=== PATIENT | male | born 1965 | race Caucasian/White ===

== ENCOUNTER 2017-04-16 19:24 | Emergency (ER) | payer OTHER ==
[2017-04-16 19:37] VITALS: BP 130/88
--- NOTE | 2017-04-16 20:11 | UC ---
Respiratory Complaint HPI - HPI Summary HPI Summary: Cough and congestion for about 2-3 days. No fever. Cough non productive. Cough is worse with deep breaths. - History of Current Complaint Chief Complaint: UCRespiratory Stated Complaint: COUGH Time Seen by Provider: 04/16/17 20:00 Hx Obtained From: Patient Onset/Duration: Gradual Onset, Lasting Days Timing: Constant Severity Initially: Moderate Severity Currently: Moderate Character: Cough: Nonproductive Aggravating Factors: Deep Breaths, Recumbent Position Alleviating Factors: Upright Position, Spontaneous Resolution Associated Signs And Symptoms: Positive: URI, Nasal Congestion. Negative: Dyspnea, Fever - Allergies/Home Medications Allergies/Adverse Reactions: Allergies Allergy/AdvReac Type Severity Reaction Status Date / Time CI Pigment Blue 63 Allergy Severe cause Verified 04/16/17 19:37 [From Cymbalta] liver problems Duloxetine [From Cymbalta] Allergy Severe cause Verified 04/16/17 19:37 liver problems Moxifloxacin [From Avelox] Allergy Intermediate severe Verified 04/16/17 19:37 muscle cramping and spasms Trazodone Allergy Unknown severe Verified 04/16/17 19:37 insomnia Celecoxib [From Celebrex] Allergy dizziness,muscle Verified 04/16/17 19:37 pain & spasms Gabapentin [From Neurontin] Allergy kidney Verified 04/16/17 19:37 failure Pregabalin [From Lyrica] Allergy dizziness, Verified 04/16/17 19:37 insomnia, increased pain PMH/Surg Hx/FS Hx/Imm Hx Previously Healthy: No - HIV, asthma. - Surgical History Surgical History: Yes Surgery Procedure, Year, and Place: [facility] 2012 [place], [place] - Family History Known Family History: Negative: Cardiac Disease, Hypertension, Diabetes - Social History Alcohol Use: None Substance Use Type: None Smoking Status (MU): Current Every Day Smoker Type: Cigarettes Amount Used/How Often: 10 cigarettes/day Have You Smoked in the Last Year: Yes Household Exposure Type: Cigarettes Review of Systems ENT: Sinus Congestion Respiratory: Cough All Other Systems Reviewed And Are Negative: Yes Physical Exam Triage Information Reviewed: Yes Appearance: Well-Appearing, No Pain Distress, Well-Nourished Vital Signs: Initial Vital Signs Temp 98 F 04/16/17 19:33 Pulse 97 04/16/17 19:33 Resp 18 04/16/17 19:33 BP 130/88 04/16/17 19:33 Pulse Ox 99 04/16/17 19:33 Vital Signs Reviewed: Yes Eyes: Positive: Conjunctiva Clear ENT: Positive: Pharynx normal, Nasal congestion, Nasal drainage, TMs normal. Negative: TM bulging, TM dull, TM red Neck: Positive: Supple, Nontender, No Lymphadenopathy Respiratory: Positive: Lungs clear, Normal breath sounds, No respiratory distress, No accessory muscle use, Rhonchi. Negative: Respiratory distress, Decreased breath sounds, Accessory muscle use, Crackles, Stridor, Wheezing Cardiovascular: Positive: RRR, No Murmur, Pulses Normal Abdomen Description: Negative: Distended, Guarding Musculoskeletal: Positive: Strength Intact, ROM Intact, No Edema Neurological: Positive: Alert, Muscle Tone Normal. Negative: Fatigued Psychological: Positive: Age Appropriate Behavior Skin: Negative: rashes UC Diagnostic Evaluation - Laboratory O2 Sat by Pulse Oximetry: 99 Respiratory Course/Dx - Course Course Of Treatment: cough and uri. HIV positive and he has asthma. He will return for any worsening. - Differential Dx/Diagnosis Provider Diagnoses: URI. acute bronchitis. Discharge - Discharge Plan Condition: Good Disposition: HOME Prescriptions: Azithromyxin DANICA (NF) [Z-Danica (Zithromax) 250 mg tabs #6] 2 tab PO .TODAY, THEN 1 DAILY #6 tab Benzonatate [TESSALON 200 MG CAP] 200 mg PO TID PRN #20 cap PRN Reason: Cough predniSONE TAB* [Deltasone TAB*] 20 mg PO DAILY #15 tab Patient Education Materials: Acute Bronchitis (ED) Referrals: Justin Bolton MD [Primary Care Provider] -
== END 2017-04-16 20:16 | disposition home or self-care (01) ==
LOC: UCCORT 19:24
DX: J20.9 Acute bronchitis, unspecified (principal); B20 Human immunodeficiency virus [HIV] disease; J45.909 Unspecified asthma, uncomplicated
CPT/HCPCS: 99212; G0463

== ENCOUNTER 2017-06-13 13:04 | Emergency (ER) | payer OTHER ==
[2017-06-13] MEDS ORDERED: Albuterol 2.5 MG/3 ML NEB.SOL* (0.083%) INH ONE (15:06)
--- NOTE | 2017-06-13 15:39 | RAD ---
HISTORY: Cough, positive HIV COMPARISONS: None VIEWS: 4: Frontal dual-energy and lateral views of the chest. FINDINGS: CARDIOMEDIASTINAL SILHOUETTE: The cardiomediastinal silhouette is normal. ROMARIO: The romario are normal. PLEURA: The costophrenic angles are sharp. No pleural abnormalities are noted. LUNG PARENCHYMA: The lungs are clear. ABDOMEN: The upper abdomen is clear. There is no subphrenic gas. BONES AND SOFT TISSUES: No bone or soft tissue abnormalities are noted. OTHER: None. IMPRESSION: NO ACTIVE CARDIOPULMONARY DISEASE.
[2017-06-13 15:58] LABS: ABS Basophils 0 10^3/ul (0-0.2); ABS Eosinophils 0 10^3/ul (0-0.6); ABS Lymphocytes 2.6 10^3/ul (1.0-4.8); ABS Monocytes 0.7 10^3/ul (0-0.8); ABS Neutrophils 5.7 10^3/ul (1.5-7.7); ABS Nucleated RBC 0 10^3/ul; Eosinophil % 0.5 % (0-6); Hematocrit 40 % (42-52); Hemoglobin 14.1 g/dl (14.0-18.0); Lymphocyte % 28.9 % (25-47); Mean Corpuscular HGB Conc 35 g/dl (31-36); Mean Corpuscular Hemoglobin 33 pg (27-31); Mean Corpuscular Volume 94 fL (80-94); Mean Platelet Volume 7 um3 (7.4-10.4); Nucleated Red Blood Cells % 0; Platelet Count 315 10^3/ul (150-450); Red Blood Count 4.25 10^6/ul (4.0-5.4); Red Cell Distribution Width 14 % (10.5-15); White Blood Count 9.1 10^3/ul (3.5-10.8)
[2017-06-13 16:16] LABS: EGFR Non-African American 81.6 (>60)
[2017-06-13 17:13] VITALS: BP 112/70
--- NOTE | 2017-06-14 12:28 | ED ---
Alfred Garces Jennifer, scribed for Justin Meza MD on 06/13/17 at 1503 . Shortness of Breath - History of Current Complaint Chief Complaint: EDShortnessOfBreath Hx Obtained From: Patient Onset/Duration: Gradual Onset - 6 months ago, Still Present, Worse Since Current Severity: Mild Aggrevating Factors: Movement, Deep Breaths Alleviating Factors: Nothing Associated Signs & Symptoms: Cough (Productive), Fever, Chills - Allergy/Home Medications Allergies/Adverse Reactions: Allergies Allergy/AdvReac Type Severity Reaction Status Date / Time MS CI Pigment Blue 63 Allergy Severe cause Verified 05/21/17 14:24 [From Cymbalta] liver problems MS Duloxetine [From Cymbalta] Allergy Severe cause Verified 05/21/17 14:24 liver problems MS Moxifloxacin [From Avelox] Allergy Intermediate severe Verified 05/21/17 14: 24 muscle cramping and spasms MS Trazodone [Trazodone] Allergy Unknown severe Verified 05/21/17 14:24 insomnia MS Celecoxib [From Celebrex] Allergy dizziness,muscle Verified 05/21/17 14:24 pain & spasms MS Gabapentin Allergy kidney Verified 05/21/17 14:24 [From Neurontin] failure MS Pregabalin [From Lyrica] Allergy dizziness, Verified 05/21/17 14:24 insomnia, increased pain PMH/Surg Hx/FS Hx/Imm Hx Endocrine/Hematology History: Denies: Hx Diabetes Cardiovascular History: Reports: Hx Hypercholesterolemia Denies: Hx Hypertension, Hx Pacemaker/ICD Respiratory History: Reports: Hx Asthma, Hx Chronic Bronchitis History: Reports: Hx Acute Renal Failure - secondary to taking Neurontin, Hx Renal Disease - KIDNEY FAILURE 2013 Musculoskeletal History: Reports: Hx Back Problems - chronic neck apnd low back pain Sensory History: Reports: Hx Contacts or Glasses, Other Sensory Impairments - dentures Denies: Hx Hearing Aid Opthamlomology History: Reports: Hx Contacts or Glasses, Other Sensory Impairments - dentures Neurological History: Reports: Hx Headaches, Other Neuro Impairments/Disorders - PAIN CLINIC PT Psychiatric History: Reports: Hx Anxiety, Hx Panic Disorder - TAKES XANAX - Surgical History Surgery Procedure, Year, and Place: [facility] [address] [place], [place] Infectious Disease History: No Infectious Disease History: Reports: Hx Human Immunodeficiency Virus (HIV) Denies: History Other Infectious Disease, Traveled Outside the [place] in Last 30 Days - Family History Known Family History: Negative: Cardiac Disease, Hypertension, Diabetes - Social History Alcohol Use: None Substance Use Type: Reports: None Smoking Status (MU): Current Every Day Smoker Type: Cigarettes Amount Used/How Often: 10 cigarettes/day Have You Smoked in the Last Year: Yes Review of Systems Positive: Fever, Chills, Skin Diaphoresis, Other - Appetite loss ENT: Negative Negative: Sore Throat, Ear Ache Cardiovascular: Negative Respiratory: Other Positive: Shortness Of Breath, Cough - Productive Gastrointestinal: Negative Genitourinary: Negative Musculoskeletal: Other Positive: Myalgia Skin: Negative Neurological: Other - Dizziness Positive: Weakness All Other Systems Reviewed And Are Negative: Yes Physical Exam - Summary Physical Exam Summary: Appearance: Well-appearing, Well-nourished Skin: Warm, Dry, No rash Eyes: Normal, PERRL, EOMI, sclera anicteric ENT: Normal, pharynx normal Neck: Supple, nontender Respiratory: Few rhonchi expiratory wheezes Cardiovascular: S1, S2, no murmur, no rub, no gallop Abdomen: Soft, nontender, no organomegaly Bowel sounds: Present Musculoskeletal: Normal, Strength/ROM Intact, no edema, pulses symmetrical Neurological: Normal, A&Ox3, cranial nerves II-XII WNL, follows commands, gait not tested, sensation intact to pin and light touch Psychiatric: affect normal, behavior appropriate, dressed appropriately, judgment intact Triage Information Reviewed: Yes Vital Signs On Initial Exam: Initial Vitals Temp Pulse Resp BP Pulse Ox 98.8 F 116 20 126/83 100 06/13/17 13:12 06/13/17 13:12 06/13/17 13:12 06/13/17 13:12 06/13/17 13:12 Vital Signs Reviewed: Yes Diagnostics - Vital Signs Vital Signs Temp Pulse Resp BP Pulse Ox 06/13/17 13:12 98.8 F 116 20 126/83 100 - Laboratory Lab Results: Lab Results 06/13/17 06/13/17 06/13/17 Range/Units 15:48 15:48 16:15 WBC 9.1 (3.5-10.8) 10^3/ul RBC 4.25 (4.0-5.4) 10^6/ul Hgb 14.1 (14.0-18.0) g/dl Hct 40 L (42-52) % MCV 94 (80-94) fL MCH 33 H (27-31) pg MCHC 35 (31-36) g/dl RDW 14 (10.5-15) % Plt Count 315 (150-450) 10^3/ul MPV 7 L (7.4-10.4) um3 Neut % (Auto) 62.2 (38-83) % Lymph % (Auto) 28.9 (25-47) % [place] % (Auto) 8.0 (1-9) % Eos % (Auto) 0.5 (0-6) % Baso % (Auto) 0.4 (0-2) % Absolute Neuts (auto) 5.7 (1.5-7.7) 10^3/ul Absolute Lymphs (auto) 2.6 (1.0-4.8) 10^3/ul Absolute Monos (auto) 0.7 (0-0.8) 10^3/ul Absolute Eos (auto) 0 (0-0.6) 10^3/ul Absolute Basos (auto) 0 (0-0.2) 10^3/ul Absolute Nucleated RBC 0 10^3/ul Nucleated RBC % 0 Sodium 140 (133-145) mmol/L Potassium 3.2 L (3.5-5.0) mmol/L Chloride 109 (101-111) mmol/L Carbon Dioxide 23 (22-32) mmol/L Anion Gap 8 (2-11) mmol/L BUN 11 (6-24) mg/dL Creatinine 0.96 (0.67-1.17) mg/dL Est GFR ( Amer) 105.0 (>60) Est GFR (Non-Af Amer) 81.6 (>60) BUN/Creatinine Ratio 11.5 (8-20) Glucose 112 H (70-100) mg/dL Calcium 9.2 (8.6-10.3) mg/dL Total Bilirubin 0.50 (0.2-1.0) mg/dL AST 13 (13-39) U/L ALT 11 (7-52) U/L Alkaline Phosphatase 55 (34-104) U/L Total Protein 6.7 (6.4-8.9) g/dL Albumin 4.2 (3.2-5.2) g/dL Globulin 2.5 (2-4) g/dL Albumin/Globulin Ratio 1.7 (1-3) Influenza A (Rapid) Negative (Negative) Influenza B (Rapid) Negative (Negative) Result Diagrams: 06/13/17 15:48 06/13/17 15:48 Lab Statement: Any lab studies that have been ordered have been reviewed, and results considered in the medical decision making process. - Radiology CXR Xray Interpretation: No Acute Changes - NO ACTIVE CARDIOPULMONARY DISEASE. Dr. Meza has reviewed this report. Radiology Interpretation Completed By: Radiologist Course/Dx - Course Assessment/Plan: The patient is a 52 year old male who presents to the ED with right lung pain and shortness of breath that began gradually about 6 months ago. In the ED course the patient was given Albuterol. Bloodwork was obtained. CXR was obtained. The patient is diagnosed with COPD and viral upper respiratory infection. The patient is instructed to follow up with his primary care physician. - Diagnoses Provider Diagnoses: COPD (chronic obstructive pulmonary disease), Viral upper respiratory infection Discharge - Discharge Plan Condition: Good Disposition: HOME Prescriptions: Budesonide/Formote 160/4.5(NF) [Symbicort 160/4.5 (NF)] 2 puff INH BID 30 Days # 1 mdi Referrals: Justin Bolton MD [Primary Care Provider] - Additional Instructions: RETURN TO THE EMERGENCY DEPARTMENT FOR CHANGING OR WORSENING SYMPTOMS. The documentation as recorded by the Alfred hall Jennifer accurately reflects the service I personally performed and the decisions made by , Justin Meza MD.
== END 2017-06-13 17:14 | disposition home or self-care (01) ==
LOC: ED 13:04
DX: J44.9 Chronic obstructive pulmonary disease, unspecified (principal); J06.9 Acute upper respiratory infection, unspecified; E78.00 Pure hypercholesterolemia, unspecified; F41.9 Anxiety disorder, unspecified; F41.0 Panic disorder [episodic paroxysmal anxiety]; F17.210 Nicotine dependence, cigarettes, uncomplicated
CPT/HCPCS: 36415; 71046; 80053; 85025; 87502; 94640; 99282